=== PATIENT | female | born 1995 | race Caucasian/White ===

== ENCOUNTER 2023-04-27 08:08 | Emergency (ER) | payer OTHER | END 2023-04-27 10:31 | disposition home or self-care (01) | LOC: JD.ED 08:08 | DX: S82.031A Displaced transverse fracture of right patella, initial encounter for closed fracture (principal); W01.0XXA Fall on same level from slipping, tripping and stumbling without subsequent striking against object, initial encounter | CPT/HCPCS: 73560-26-RT; 73560-RT; 99282; 99284 ==

== ENCOUNTER 2023-05-04 08:05 | Day surgery (SDC) | payer OTHER ==
[~2023-05-04 08:05] MED LIST: Midazolam 1 MG/ML 2 ML SDV ONE; Ropivacaine 0.5% 5 MG/ML 30 ML SDV ONE; Sodium Chloride 0.9% 10 ML Syringe FLUSH PRN; dexmedeTOMIDine HCl 200 MCG/2 ML SDV ONE; fentaNYL 100 MCG/2 ML SDV ONE
[2023-05-04] MEDS: Lactated Ringers 1,000 ML IV SCH (08:15)
[2023-05-04] MEDS ORDERED: EPINEPHrine 1 MG/ML SDV ONE (08:35)
[2023-05-04] MEDS ORDERED: Propofol 200 MG/20 ML SDV ONE (08:54)
[2023-05-04] MEDS ORDERED: ceFAZolin 2 GM Vial ONE (08:55)
[2023-05-04] MEDS ORDERED: Lidocaine 1% 4 ML ONE (08:55)
[2023-05-04] MEDS ORDERED: Sodium Chloride 0.9% 10 ML Syringe FLUSH SCH (09:00)
[2023-05-04] MEDS ORDERED: Ondansetron 4 MG/2 ML SDV ONE (09:05)
[2023-05-04] MEDS ORDERED: Ketamine 200 MG/20 ML MDV ONE (09:17)
[2023-05-04] MEDS ORDERED: fentaNYL 100 MCG/2 ML SDV ONE (09:31)
[2023-05-04] MEDS ORDERED: Dexamethasone 4 MG/ML 5 ML MDV ONE (09:31)
== END 2023-05-04 11:50 | disposition home or self-care (01) ==
LOC: JD.SDS 08:05
PROVIDERS: ATTEND Orthopaedic Surgery
DX: S82.001A Unspecified fracture of right patella, initial encounter for closed fracture (principal); X58.XXXA Exposure to other specified factors, initial encounter
CPT/HCPCS: 01392; 64447; 76000; 76000-26; C1713; J0171; J0690; J1100; J2250; J2405; J2704; J2795; J3010; J3490; J7120

== ENCOUNTER 2024-04-27 18:13 | Day surgery (SDC) | payer OTHER ==
[2024-04-27] MEDS: Sodium Chloride 0.9% 1,000 ML IV ONE (20:10)
[2024-04-27] MEDS: Ondansetron 4 MG/2 ML SDV IVPUSH ONE (20:42)
[2024-04-27 20:47] LABS: BASOPHILS ABSOLUTE AUTO 0.1 K/mm3 (0.0-0.2); BASOPHILS PERCENT AUTO 0.4 % (0.0-1.0); EOSINOPHILS ABSOLUTE AUTO 0.1 K/mm3 (0.0-0.4); EOSINOPHILS PERCENT AUTO 0.9 % (0.0-6.0); HEMATOCRIT 31.2 % (37.0-47.0); HEMOGLOBIN 10.5 gm/dl (12.0-16.0); IMMATURE GRAN ABSOLUTE AUTO 0.04 K/mm3 (0.00-0.05); IMMATURE GRAN PERCENT AUTO 0.3 % (0.0-0.4); LYMPHOCYTES ABSOLUTE AUTO 1.9 K/mm3 (1.0-4.8); LYMPHOCYTES PERCENT AUTO 14.4 % (24.0-44.0); MEAN CORPUSCULAR HGB CONC 33.7 g/dl (32.0-36.0); MEAN CORPUSCULAR VOLUME 89.1 fl (83.0-99.0); MEAN PLATELET VOLUME 10.5 fl (9.4-12.3); MONOCYTES ABSOLUTE AUTO 0.8 K/mm3 (0.0-0.8); NEUTROPHILS ABSOLUTE AUTO 10.1 K/mm3 (1.8-7.7); PLATELET COUNT,PLT 284 K/mm3 (150-400); WHITE BLOOD CELL COUNT,WBC 12.97 K/mm3 (3.9-11.3)
[2024-04-27 21:14] LABS: A/G RATIO 1.1 (1-2); ALBUMIN 2.8 g/dl (3.4-5.0); ANION GAP 13.5 (5-15); BILIRUBIN TOTAL 0.2 mg/dL (0.2-1.0); BUN/CREATININE RATIO 14.4 (14-18); CALCIUM 7.9 mg/dL (8.5-10.1); CREATININE 0.9 mg/dL (0.55-1.02); EST CRCL DRUG DOSING (CG) 85.56 mL/min; POTASSIUM,K 3.5 mEq/L (3.5-5.1); PROTEIN TOTAL,TP 5.4 g/dl (6.4-8.2)
[2024-04-27] MEDS ORDERED: Sodium Chloride 0.9% 1,000 ML ONE (21:50)
[2024-04-27] MEDS ORDERED: Propofol 200 MG/20 ML SDV ONE (22:14)
[2024-04-27] MEDS ORDERED: Ondansetron 4 MG/2 ML SDV ONE (22:14)
[2024-04-27] MEDS ORDERED: Lidocaine 1% 5 ML VIAL ONE (22:14)
[2024-04-27] MEDS ORDERED: Dexamethasone 4 MG/ML 5 ML MDV ONE (22:14)
[2024-04-27] MEDS ORDERED: Succinylcholine 200 MG/10 ML MDV ONE (22:14)
[2024-04-27] MEDS ORDERED: fentaNYL 100 MCG/2 ML SDV ONE (22:15)
[2024-04-27] MEDS ORDERED: Midazolam 1 MG/ML 2 ML SDV ONE (22:15)
[2024-04-27] MEDS ORDERED: Tranexamic Acid 1,000 MG/10 ML Vial ONE (22:21)
[2024-04-27] MEDS ORDERED: Methylergonovine 0.2 MG/1 ML Amp ONE (22:21)
[2024-04-27] MEDS ORDERED: Rocuronium 50 MG/5 ML Vial ONE (22:40)
[2024-04-27] MEDS ORDERED: Phenylephrine 1% 10 MG/ML SDV ONE (22:53)
[2024-04-27] MEDS ORDERED: ePHEDrine 50 MG/ML SDV ONE (22:54)
[2024-04-27] MEDS ORDERED: oxyCODONE 5 MG Tab PO ONE (23:22)
[2024-04-27] MEDS ORDERED: fentaNYL 100 MCG/2 ML SDV IVPUSH PRN (23:22)
[2024-04-27] MEDS ORDERED: HYDROmorphone 0.5 MG/0.5 ML Syringe IVPUSH PRN (23:22)
[2024-04-27] MEDS ORDERED: Ondansetron 4 MG/2 ML SDV IVPUSH PRN (23:22)
[2024-04-27] MEDS: Ketorolac 30 MG/ML SDV IVPUSH ONE (23:44)
[2024-04-27] MEDS: Doxycycline Monohydrate 100 MG Cap PO ONE (23:46)
== END 2024-04-28 00:22 ==
LOC: JD.ED 18:13 → JD.SDS 22:26
PROVIDERS: ATTEND Obstetrics & Gynecology
DX: O03.1 Delayed or excessive hemorrhage following incomplete spontaneous abortion (principal); D62 Acute posthemorrhagic anemia
CPT/HCPCS: 36415; 36430; 59812; 76817; 80053; 84702; 85025; 86850; 86900; 86901; 86922; 96361; 96374; 99285; A9270; J0330; J1100; J1885; J2250; J2371; J2405; J2704; J3010; J7030; P9016; 01965; 99140; 99283; J2210; J3490